=== PATIENT | male | born 1960 | race African-American/Black ===

== ENCOUNTER 2017-12-01 15:07 | Emergency (ER) | payer SELFPAY ==
[~2017-12-01] VITALS: Ht 170.2 cm; Wt 59.3 kg
[2017-12-01 15:10] VITALS: BP 163/108
[2017-12-01] MEDS ORDERED: KETOROLAC 30 MG/1 ML ONE (15:45)
[2017-12-01] MEDS ORDERED: KETOROLAC 30 MG/1 ML IM ONE (16:00)
== END 2017-12-01 16:21 | disposition home or self-care (01) ==
LOC: ED 16:08
DX: S83.422A Sprain of lateral collateral ligament of left knee, initial encounter (principal); X58.XXXA Exposure to other specified factors, initial encounter; Y93.89 Activity, other specified; Y92.89 Other specified places as the place of occurrence of the external cause; Y99.8 Other external cause status
CPT/HCPCS: 73564; 96372; 99284; J1885